=== PATIENT | female | born 1975 | race Caucasian/White ===

== ENCOUNTER 2020-05-07 18:42 | Emergency (ER) | payer SELFPAY ==
[~2020-05-07] VITALS: Ht 167.6 cm; Wt 55.0 kg
--- NOTE | 2020-05-07 19:05 | NUR ---
LAB DRAWING BLOOD.
--- NOTE | 2020-05-07 19:08 | NUR ---
DR KENNEDY AT BS. PT IN [facility], STATES SHE'S BEEN CLEAN FOR 7 YEARS, AND RECENTLY STARTED DRINKING.
[2020-05-07 19:19] LABS: BASOPHILS % (AUTO) 1 % (0-1); EOSINOPHILS % (AUTO) 0 % (1-7); LYMPHOCYTES % (AUTO) 31 % (22-44); MEAN CORPUSCULAR HEMOGLOBIN 30.4 pg (27.5-34.5); MEAN CORPUSCULAR HGB CONC 34.7 g/dL (33.2-36.2); MONOCYTES % (AUTO) 5 % (2-9); NEUTROPHILS % (AUTO) 64 % (42-75); PLATELET COUNT 322 x10^3/uL (130-400); RED BLOOD COUNT 5.22 x10^6/uL (4.38-5.82); RED CELL DISTRIBUTION WIDTH 12.3 % (9.4-14.8)
--- NOTE | 2020-05-07 19:19 | NUR ---
PT CRYING LOUDLY. STATES SHE'S AN ALCOHOLIC AND FELL OFF THE [place]. STATES SHE "HAS AN ISSUE" WITH KRATOM; USED ALCOHOL TO TRY TO GET OFF DRUG. STATES SHE'S BEEN DRINKING FOR 2-3 DAYS.
[2020-05-07 19:22] LABS: MD NO
[2020-05-07 19:24] LABS: ALBUMIN 4.1 g/dL (3.4-5.0); ANION GAP 10 mmol/L (5-15); CALCIUM 8.1 mg/dL (8.5-10.1); CHLORIDE 105 mmol/L (98-107); CREATININE 0.73 mg/dL (0.7-1.3)
[2020-05-07 19:26] LABS: SALICYLATE LEVEL < 1.7 mg/dL (2.8-20.0)
--- NOTE | 2020-05-07 19:57 | NUR ---
PT PULLED IV OUT. WALKING IN HALLWAY. ACCOMPANIED PT BACK TO ROOM. DRESSING PLACED ON IV SITE. PT CRYING AND ASKING FOR HELP. WILL CONSULT DR KENNEDY.
--- NOTE | 2020-05-07 20:00 | NUR ---
PT'S SHOES PLACED IN ED LOCKER
--- NOTE | 2020-05-07 20:10 | NUR ---
ACCOMPANIED DR KENNEDY TO PT ROOM. ERP EXPLAINED POC, PT VERBALIZED UNDERSTANDING, STATED SHE WOULD STAY UNTIL SHE SOBERED UP SO THAT SHE COULD, HOPEFULLY, BE TRANSFERRED TO [facility] FOR [facility]. AFTER ERP LEFT ROOM, PT STARTED SAYING SHE WOULD LEAVE. PT ALTERNATES BETWEEN BEING COOPERATIVE AND NOT; BETWEEN TALKING AND YELLING.
--- NOTE | 2020-05-07 20:15 | NUR ---
SECURITY AT ROOM DOOR. WILL CONSULT ERP RE: PT STATUS
[2020-05-07] MEDS ORDERED: LORazepam 2 MG/ML, 1ML ONE ×2 (20:16→22:14)
--- NOTE | 2020-05-07 20:18 | NUR ---
PER DR KENNEDY: VO ATIVAN 2MG IM
--- NOTE | 2020-05-07 20:20 | NUR ---
ATIVAN 2MG IM GIVEN TO RT DELTOID. PT ON GURNEY. SECURITY DISCHARGED.
--- NOTE | 2020-05-07 20:26 | NUR ---
PT SITTING ON END OF GUPOLO, STATING SHE'S GOING HOME. INFORMED PT SHE NEEDS TO STAY TO LET MEDICATION WORK, THAT IT'S ONLY BEEN 5 MINS. PT AGREED TO STAY.
[2020-05-07] MEDS ORDERED: LORazepam 2 MG/ML, 1ML IM ONE ×2 (20:30→22:30)
--- NOTE | 2020-05-07 20:32 | NUR ---
PT STATING SHE'S GOING TO LEAVE. ADVISED PT TO RETURN TO [facility] AND WAIT FOR MEDICATION TO WORK. PT AGREEABLE, FOR NOW
--- NOTE | 2020-05-07 21:00 | NUR ---
PT STATING SHE'S GOING TO LEAVE. INFORMED PT SHE NEEDS TO STAY FOR CARE.
--- NOTE | 2020-05-07 21:05 | NUR ---
PT AMBULATORY TO DC DOOR. ACCOMPANIED BACK TO ROOM. CONTINUING TO CRY, STATING "NO ONE IS DOING ANYTHING FOR ME" "I WANT HELP. I NEED TO STOP AND I DON'T KNOW HOW"
--- NOTE | 2020-05-07 21:54 | NUR ---
PT REPORT TO LIBIA ESTEBAN. PT CARE TRANSFERRED.
--- NOTE | 2020-05-07 22:04 | NUR ---
Report from LIBIA Marroquin. Pt moaning, crying. Provided with theodora giraldo. Pt to be re-evaluated for psych issues after she ciro up. Sitter in line of site, will continue to monitor.
--- NOTE | 2020-05-07 22:17 | NUR ---
Pt out in halljace, sourav, toño. Requested repeat ativan from provider.
--- NOTE | 2020-05-07 22:30 | NUR ---
Pt situated in [facility] with blankets and pillows, rails up, sitter in line of site. Will continue to monitor.
--- NOTE | 2020-05-07 22:49 | NUR ---
Pt up looking through cabinets, room now secured. Garage doors down, placed on cont pulse ox. When asked pt what she was doing she stated "looking for something sharp to stab myself with but you caught me".
--- NOTE | 2020-05-08 00:47 | NUR ---
Pt now sleeping, RR equal and unlabored.
--- NOTE | 2020-05-08 00:59 | NUR ---
Pt awake, watching tv. Sitter in line of site.
--- NOTE | 2020-05-08 02:38 | NUR ---
Pt awake, watching tv. Sitter in line of site. Drinking water.
--- NOTE | 2020-05-08 03:31 | NUR ---
Sleeping, RR equal and unlabored. Sitter in line of site.
--- NOTE | 2020-05-08 04:06 | NUR ---
Re-eval by ERP, pt sobered up denies wanting to harm herself. She said she is just very upset she started drinking again. Pt to be dc home in cab.
[2020-05-08 04:10] VITALS: BP 135/74
== END 2020-05-08 04:29 | disposition home or self-care (01) ==
LOC: EDSEX 18:42 → ED 22:17
DX: F10.120 Alcohol abuse with intoxication, uncomplicated (principal); F32.9 Major depressive disorder, single episode, unspecified; R45.851 Suicidal ideations; Z87.891 Personal history of nicotine dependence; Y90.0 Blood alcohol level of less than 20 mg/100 ml
CPT/HCPCS: 36415; 80048; 80299; 80320; 80329; 82040; 85025; 96372; 99284; J2060; G0480